=== PATIENT | male | born 1950 | race Caucasian/White ===

== ENCOUNTER 2016-10-14 08:39 | Emergency (ER) | payer MEDICARE, OTHER ==
[2016-10-14 09:38] LABS: HEMOGLOBIN 14.7 gm/dl (14.0-17.5); RED BLOOD COUNT 4.85 M/UL (4.20-5.50); WHITE BLOOD COUNT 6.3 K/UL (4.5-11.0)
[2016-10-14 09:49] LABS: BUN/CREATININE RATIO 26 (0-10)
== END 2016-10-14 12:34 | disposition home or self-care (01) ==
LOC: ER1 08:39
PROVIDERS: Physician Assistant
DX: R42 Dizziness and giddiness (principal); R11.0 Nausea; I10 Essential (primary) hypertension; E78.5 Hyperlipidemia, unspecified
CPT/HCPCS: 36415; 70551; 71010; 80053; 81001; 82550; 82553; 83874; 84484; 85025; 93005; 99284

== ENCOUNTER → 2021-12-17 | Day surgery (SDC) | payer OTHER, MEDICARE ==
[~2021-12-17] MED LIST: BACTROBAN OINT22 GM EXT; IBUPROFEN600 MG PO; KEFLEX CAP 500500 MG PO; LEVOTHYROXINE100 MC2 PO; METFORMIN HCL500 M2 PO; SIMVASTATIN5 MG PO
== END | disposition home or self-care (01) ==
LOC: OR 05:17
DX: Z12.11 Encounter for screening for malignant neoplasm of colon (principal); K63.5 Polyp of colon; K57.30 Diverticulosis of large intestine without perforation or abscess without bleeding; Z20.822 Contact with and (suspected) exposure to COVID-19; E11.9 Type 2 diabetes mellitus without complications; E03.9 Hypothyroidism, unspecified; Z79.84 Long term (current) use of oral hypoglycemic drugs; Z79.899 Other long term (current) drug therapy
CPT/HCPCS: 82962; J2704; J7120